=== PATIENT | male | born 1975 | race Caucasian/White ===

== ENCOUNTER → 2017-08-12 | Day surgery (SDC) | payer BC ==
[~2017-08-12] MED LIST: AMLO2.5T PO; HYDROmorphone 2 MG/ML VIAL IV PRN; IBUP-1060 PO; IV RINGERS,LACTATED 1000ML 1,000 ML IV SCH; LIDOCAINE 1% PF 2 ML VIAL. ID PRN; MORPHINE SULFATE 4 MG/ML DISP.SYRIN. IV PRN; OMEP20CA9 PO; ONDANSETRON PF 4 MG/2 ML VIAL. IV PRN; PROCHLORPERAZINE 10 MG/2 ML VIAL. IV PRN; PROPOFOL 40 ML IV ONE; fentaNYL PF VIAL 100 MCG/2 ML VIAL IV PRN
--- NOTE | 2017-08-12 10:24 | PDOC1 ---
HISTORY & PHYSICAL H&P Sivakumar Frances 1975 08/05/2017 04:15 PM 10/06 [facility] OUR PATIENTS COME FIRST [address] [place] [address]. [phone] Patient: Sivakumar Frances Date of : 1975 Date: 08/05/2017 4:15 PM Visit Type: Office Visit This 42 year old male presents for Abdominal pain and Diarrhea. History of Present Illness: 1. Abdominal pain Duration is 3 Months. Location is epigastric, midline. The patient describes it as aching, bloating and gnawing. Denies aggravating factors. Denies relieving factors. Additional information: Patient also has significant acid reflux and heartburn. 2. Diarrhea Onset: 3 months ago. Severity level is: mild-moderate. Stool frequency: 3 to 4 times a day. The patient describes it as loose and watery. It occurs randomly. Associated symptoms include abdominal pain, bloating, blood in stool and cramping (abdominal). Pertinent negatives include fecal incontinence, fever and weight loss. Additional information: no family history of colon cancer and no family history of Crohns/Colitis. INTAKE COMMENTS: Intake Comments: Nurse Note: the pt is here today with complaints of diarrhea and abd pain. PROBLEM LIST: Problem Description Onset Date Essential hypertension 10/13/2013 Backache 10/13/2013 Peptic ulcer 08/20/2013 Angina pectoris 08/20/2013 Generalized abdominal pain 01/24/2016 Blood in the stool 01/24/2016 Multiple skin nodules 04/29/2016 Chronic diarrhea 01/24/2016 Injury of lumbar spine, subsequent encounter 10/24/2015 Closed fracture of multiple ribs of both sides, sequela 10/24/2015 Closed fracture thoracic vertebra 11/15/2013 Elevated LFTs 04/29/2016 Hyperthyroidism 04/29/2016 Abdominal pain in male 01/08/2016 PAST MEDICAL/SURGICAL HISTORY (Detailed) Disease/disorder Onset Date Management Date Comments Beatty's esophagus Chest pain cardiac catheterization 2012 fatty tumor (R) hand surgically removed 2012 fhemagioma (L) knee surgically removed 1987 Gastric polyp EGD with biopsy 09/23/2013 DIAGNOSTICS HISTORY: Test Ordered Interpretation Result completed EGD 09/08/2013 abnormal Imp: gastritis (bx), polyp in the stomach body(bx), no endoscopic evidence of Beatty's epithelium seen, no endoscopic evidence of reflux esophagitis seen, Indicates control of reflux esophagitis on treatment. BX: fundic gland polyp, antral and fundic type gastric mucosa within normal limits, esophageal squamous and cardiac type gastric mucosa within normal limits. 09/23/[address] WITH Contrast 10/13/2013 abnormal Imp: mild wall thickening of a few loops of small bowel in the mid and left upper abd without associated inflammatory stranding probably representing mild enteritis, short segment thickening of a loop of sigmoid colon may be related to peristalsis, however mild colitis not excluded, correlate clinically 10/22/2013 Test Ordered Ordering Comments Modifier EGD 09/08/[address] WITH Contrast 10/13/2013 Medications (Active): Started Medication Directions Instruction Stopped 08/05/2017 amlodipine 2.5 mg tablet TAKE 1 TABLET EVERY DAY 08/05/2017 omeprazole 20 mg capsule,delayed release take 1 capsule by oral route 2 times every day before a meal Allergies: Ingredient Reaction Medication Name Comment NO KNOWN ALLERGIES REVIEW OF SYSTEMS System Neg/Pos Details Constitutional Negative Chills, fever, malaise and weight loss. ENMT Negative Sore throat. Eyes Negative Double vision. Respiratory Negative Dyspnea and wheezing. Cardio Negative Chest pain and irregular heartbeat/palpitations. GI Positive Abdominal cramping, Abdominal pain, Bloating, Blood in stool, See HPI. GI Negative Fecal incontinence and see HPI. Negative Dysuria and hematuria. Endocrine Negative Cold intolerance and heat intolerance. Psych Negative Anxiety. Integumentary Negative Hives and rash. MS Negative Joint pain. Samuel/Lymph Negative Easy bleeding and easy bruising. Allergic/Immuno Negative Food allergies. PHYSICAL EXAM: Exam Findings Details Constitutional Normal Well developed. Eyes Normal Conjunctiva - Right: Normal, Left: Normal. Sclera - Right: Normal, Left: Normal. Nasopharynx Normal Lips/teeth/gums - Normal. Neck Exam Normal Inspection - Normal. Thyroid gland - Normal. Respiratory Normal Inspection - Normal. Auscultation - Normal. Cardiovascular Normal Regular rate and rhythm. No murmurs, gallops, or rubs. Vascular Normal Pulses - Carotids: Normal, Femoral: Normal, Dorsalis pedis: Normal. Abdomen Normal Inspection - Normal. Anterior palpation - No guarding. No abdominal tenderness. No hepatic enlargement. No splenic enlargement. No hernia. No ascites. Skin Normal Inspection - Normal. Extremity Normal No edema. Psychiatric * Oriented to time, place, person and situation. Psychiatric Normal Appropriate mood and effect. Assessment/Plan # Detail Type Description 1. Assessment Pain of upper abdomen (R10.10). Patient Plan schedule EGD at Plan Orders Further diagnostic evaluations ordered today include(s) EGD to be performed today. 2. Assessment Functional diarrhea (K59.1). Patient Plan Await colonoscopy result. 3. Assessment GERD with esophagitis (K21.0). Patient Plan Await EGD result. 4. Assessment Rectal bleeding (K62.5). Patient Plan schedule colonoscopy at Plan Orders Further diagnostic evaluations ordered today include(s) Colonoscopy to be performed today. He is to schedule a follow-up visit with James Kan MD upon completion of work-up Electronically signed by: James Kan MD 08/05/2017 05:07 PM Document generated by: James Kan 08/05/2017 05:07 PM Salima Johnson MD, [facility]; Ranjeet Bliss MD Internal Medicine; Nils Guillen MD, Internal Medicine; Eusebio Kan MD Internal Medicine; James Kan MD, Gastroenterology; Ge Morejon MD, Rheumatology, S. Jay Pinzon, Physical Medicine/Rehab JAlee Naranjo APRN ------ 08/12/17 Patient seen and examined. No change in H&P. JAMES KAN MD, PRAVIN N MD Aug 12, 2017 10:24
[2017-08-12 12:30] VITALS: BP 126/92
--- NOTE | 2017-08-13 14:17 | PATHOLOGY ---
PATHOLOGY REPORT * * * * * * * * FINAL DIAGNOSIS: Gastric biopsies, antral polyp: - Hyperplastic polyp, with mild chronic inflammation. COMMENT: Sections of the gastric biopsy reveal polypoid segments of gastric antral mucosa showing congestion, foveolar hyperplasia, and mild chronic inflammation with focally admixed eosinophils and occasional neutrophils. An immunoperoxidase stain for Helicobacter is obtained. No Helicobacter organisms are identified. The findings are consistent with a hyperplastic polyp. There are no adenomatous changes or evidence of malignancy. (JPM:mgr; 08/13/2017) REPORT ELECTRONICALLY SIGNED BY: Salinas Cedeño M.D. DATE/TIME: 08/13/2017 14:16 * * * * * * * * GROSS PATHOLOGY: Received in formalin labeled "Mari Frances, antrum polyp," are 3 segments of vigil soft tissue measuring 0.8 x 0.4 0.3 cm in aggregate dimensions and ranging from 0.3 to 0.5 cm in maximum dimension. The specimen is submitted entirely in cassette A1. (TSD; 08/12/2017) INITIAL CPT CODE(S): A; 14871, 41694 Professional services performed [place] [facility] [place] [address] Technical services performed by [facility] at [address] [place] [address]. SPECIMEN(S) RECEIVED: A.Antrum biopsy polyp CLINICAL HISTORY: Abdominal pain PATIENT: MARI FRANCES /AGE: 6 1975 (Age: 42) PATIENT #: [id number] ALT CASE #: SPECIMEN COLLECTION DATE: 08/12/2017 SPECIMEN RECEIVED DATE: 08/12/2017 [facility] - [address] [place] [address] - PHONE: [phone] * * * END OF REPORT * * *
== END | disposition home or self-care (01) ==
LOC: ENDOS 09:58
PROVIDERS: ATTEND Internal Medicine Gastroenterology
DX: K62.5 Hemorrhage of anus and rectum (principal); K31.7 Polyp of stomach and duodenum; I10 Essential (primary) hypertension; E03.9 Hypothyroidism, unspecified; Z86.69 Personal history of other diseases of the nervous system and sense organs; Z87.39 Personal history of other diseases of the musculoskeletal system and connective tissue
CPT/HCPCS: 43239; 45378; 88305; 88342; J2704

== ENCOUNTER → 2017-09-08 | Outpatient (CLI) | payer BC ==
[2017-08-12 12:30] VITALS: BP 126/92
[~2017-09-08] MED LIST changes: +BARIUM SULFATE 60% 355 ML SUSP PO ONE; -HYDROmorphone 2 MG/ML VIAL IV PRN; -IV RINGERS,LACTATED 1000ML 1,000 ML IV SCH; -LIDOCAINE 1% PF 2 ML VIAL. ID PRN; -MORPHINE SULFATE 4 MG/ML DISP.SYRIN. IV PRN; -ONDANSETRON PF 4 MG/2 ML VIAL. IV PRN; -PROCHLORPERAZINE 10 MG/2 ML VIAL. IV PRN; -PROPOFOL 40 ML IV ONE; -fentaNYL PF VIAL 100 MCG/2 ML VIAL IV PRN
--- NOTE | 2017-09-08 10:16 | RAD ---
Small bowel series, 09/08/2017: History: Abdominal pain and cramps The preliminary abdominal image demonstrates no abnormality. Overhead and spot films were obtained following oral ingestion of liquid barium. 1.7 minutes of fluoroscopy time was utilized. 5 fluoroscopic spot images were recorded. The small bowel loops are of normal caliber with no evidence of thickening of their folds. There is normal transit of the barium through the small bowel into the colon. The terminal ileum is unremarkable. IMPRESSION: No significant small bowel abnormality is detected.
== END | disposition home or self-care (01) ==
LOC: RAD 07:10
PROVIDERS: ATTEND Internal Medicine Gastroenterology
DX: R10.9 Unspecified abdominal pain (principal)
CPT/HCPCS: 74250